=== PATIENT | male | born 1980 | race Caucasian/White ===

== ENCOUNTER 2020-11-01 18:45 | Emergency (ER) | payer OTHER | END 2020-11-01 20:39 | disposition home or self-care (01) | LOC: ER1 18:45 | DX: J02.9 Acute pharyngitis, unspecified (principal); R05 Cough; J45.909 Unspecified asthma, uncomplicated; Z20.822 Contact with and (suspected) exposure to COVID-19; Z88.2 Allergy status to sulfonamides; F17.210 Nicotine dependence, cigarettes, uncomplicated | CPT/HCPCS: 99283; U0002 ==

== ENCOUNTER 2021-08-04 18:18 | Emergency (ER) | payer OTHER ==
[2021-08-04 19:11] LABS: HEMOGLOBIN 16.5 gm/dl (14.0-17.5); RED BLOOD COUNT 4.8 M/UL (4.20-5.50); WHITE BLOOD COUNT 9.3 K/UL (4.5-11.0)
[2021-08-04 19:40] LABS: BUN/CREATININE RATIO 12 (0-10)
[2021-08-05] MEDS ORDERED: MELOXICAM7.5 MG PO (01:04)
== END 2021-08-05 01:13 | disposition home or self-care (01) ==
LOC: ER1 18:18
PROVIDERS: Physician Assistant
DX: R07.9 Chest pain, unspecified (principal); F17.210 Nicotine dependence, cigarettes, uncomplicated; Z88.2 Allergy status to sulfonamides
CPT/HCPCS: 71045; 80053; 82550; 82553; 84484; 85025; 93005; 99285